=== PATIENT | male | born 1985 | race Caucasian/White ===

== ENCOUNTER 2021-01-23 19:28 | Emergency (ER) | payer SELFPAY ==
[~2021-01-23] VITALS: Ht 170.2 cm; Wt 77.1 kg
[2021-01-23 19:33] VITALS: BP 126/75
== END 2021-01-23 21:22 ==
LOC: ER 19:31
DX: S29.011A Strain of muscle and tendon of front wall of thorax, initial encounter (principal); V89.0XXA Person injured in unspecified motor-vehicle accident, nontraffic, initial encounter; Y93.89 Activity, other specified; Y92.89 Other specified places as the place of occurrence of the external cause; Y99.8 Other external cause status
CPT/HCPCS: 71101